=== PATIENT | male | born 1950 | race Caucasian/White ===

== ENCOUNTER 2022-01-08 05:47 | Day surgery (SDC) | payer MEDICARE, BC ==
[2022-01-07 09:45] VITALS: BMI 22.8
[2022-01-08] MEDS ORDERED: PROPOFOL 60 ML ONE (08:28)
[2022-01-08] MEDS ORDERED: Lidocaine 4% Topical Sol 50 ML BOT ONE (08:29)
[2022-01-08] MEDS ORDERED: EPINEPHrine 1 MG/ML AMP ONE ×2 (08:29→08:30)
[2022-01-08] MEDS ORDERED: Midazolam HCl 2 mg/2 ml Vial ONE (08:30)
[2022-01-08] MEDS ORDERED: Fentanyl 100 MCG/2 ML VIAL ONE (08:30)
[2022-01-08] MEDS ORDERED: Succinylcholine 200 MG/10 ml SYRINGE FS ONE (08:31)
[2022-01-08] MEDS ORDERED: Dexamethasone 20 MG/5 ML VIAL ONE (08:42)
[2022-01-08] MEDS ORDERED: Ondansetron PF 4 MG/2 ML Vial ONE (08:43)
[2022-01-08] MEDS ORDERED: PROPOFOL 20 ML ONE (08:51)
== END 2022-01-08 10:45 | disposition home or self-care (01) ==
LOC: CSHSDC 05:47
PROVIDERS: ATTEND Otolaryngology Otolaryngic Allergy
PROC: 3E0F8GC Introduction of Other Therapeutic Substance into Respiratory Tract, Via Natural or Artificial Opening Endoscopic (ICD-10-PCS; principal; 2022-01-08)
DX: J38.00 Paralysis of vocal cords and larynx, unspecified (principal); R49.0 Dysphonia; R13.10 Dysphagia, unspecified; F17.210 Nicotine dependence, cigarettes, uncomplicated; I10 Essential (primary) hypertension; E11.9 Type 2 diabetes mellitus without complications; Z79.4 Long term (current) use of insulin; Z79.899 Other long term (current) drug therapy
CPT/HCPCS: 36416; C1776; J0171; J1100; J2250; J2405; J2704; J3010